=== PATIENT | male | born 1960 | race Caucasian/White ===

== ENCOUNTER 2022-04-22 10:00 | Emergency (ER) | payer OTHER ==
[2022-04-22 10:23] VITALS: BP 165/95; PULSE 69; TEMP 98.8; BMI 29.9
[2022-04-22] MEDS ORDERED: predniSONE 20 MG TABLET (UD) PO ONE (10:30)
[2022-04-22] MEDS ORDERED: valACYclovir HCL 1000 MG TABLET PO ONE (10:30)
[2022-04-22] MEDS ORDERED: predniSONE 20 MG TABLET (UD) ONE (10:34)
[2022-04-22] MEDS ORDERED: valACYclovir HCL 500 MG TABLET (FP) ONE (10:34)
== END 2022-04-22 10:47 | disposition home or self-care (01) ==
LOC: FER 10:00
DX: G51.0 Bell's palsy (principal)
CPT/HCPCS: 99283-25